=== PATIENT | female | born 1990 | race Caucasian/White ===

== ENCOUNTER 2017-02-17 17:34 | Emergency (ER) | payer OTHER ==
[2017-02-17 17:46] VITALS: BP 158/75
--- OUTSIDE RECORDS SUMMARY | 2017-02-17 18:48 | XMS REPORT | Continuity of Care Document ---
:1990 Author Organization [facility] ([facility]) Address [place] [address] Phone [phone] Care Team Providers Name Role Phone Unavailable Primary Care Provider Unavailable Source Comments This disclosure is being made pursuant to the Care Everywhere program, applicable federal and state laws, and may not contain all informaitonavailable regarding this patient.[facility] ([facility]) Active Allergies and Adverse Reactions No Active Allergies Current Medications Not on file Active Problems Problem Noted Date Palpitations 05/22/2004 Social History Tobacco Use Types Packs/Day Years Used Date Never Assessed Last Filed Vital Signs Vital Sign Reading Time Taken Blood Pressure 171/91 05/23/2004 8:23 AM CDT Pulse 76 05/23/2004 8:23 AM CDT Temperature 37.2 C (98.96 F) 05/23/2004 8:23 AM CDT Respiratory Rate 20 05/23/2004 8:23 AM CDT Height 1.63 m (5' 4.17") 05/23/2004 8:23 AM CDT Weight 43.7 kg (96 lb 5.4 oz) 05/23/2004 8:23 AM CDT Body Mass Index 16.45 05/23/2004 8:23 AM CDT Oxygen Saturation - - Plan of Care Health Maintenance Due Date Last Done Comments Hepatitis B Vaccine (1 of 3 - Primary Series) 1990 HPV Vaccine (1 of 3 - Female/Unknown 3 Dose Series) 2001 Tdap Vaccine 2001 Cervical Cancer Screening 2008 Lipid Disorder Screening 2008 MMR Vaccine 2008 Td Vaccine 2008 Varicella Vaccine (1 of 2 - Adult - No Evidence of 2008 Immunity) Influenza Vaccine: Seasonal (#1) 06/11/2016 Results from Last 3 Months Not on file
--- NOTE | 2017-02-17 19:59 | ERNOTE ---
ENT HPI Date of Service: 02/17/17 Presenting Symptoms: other - sore throat Time Seen by Provider: 02/17/17 18:26 Source: patient Exam Limitations: no limitations - Immun/Allergies/Home Medications Immunizations: IMMUNIZATION HX Immunizations Up to Date Yes History of Influenza Vaccine No Allergies/Adverse Reactions: Allergies Allergy/AdvReac Type Severity Reaction Status Date / Time azithromycin [From Zithromax] Allergy Verified 02/17/17 17:46 levofloxacin [From Levaquin] Allergy Verified 02/17/17 17:46 Penicillins Allergy Verified 02/17/17 17:46 Home Medications: HOME MEDICATIONS Cephalexin Monohydrate [Keflex] 500 mg PO Q12H #20 cap 02/17/17 [Last Taken Unknown] - History of Present Illness Narrative: 26 year old female presented to the ER for s/s of sore throat. states she was exposed to strepthroat, all 3 of her step children have it. her throat is sore, pain with swallowing and slight fever ( yesterday). Date (Duration): 02/17/17 Severity: Present: mild Prearrival Treatment: Present: no prearrival treatment Modifying Factors - Improves: Reports: cold Modifying Factors - Worsens: Reports: activity, coughing Associated Symptoms - ENT: Reports: fever, poor fluid intake, sore throat, nasal congestion/drainage, headache Review of Systems - Review of Systems Constitutional: Present: no symptoms reported EYE: Present: no symptoms reported ENT: Present: See HPI, sore throat Respiratory: Present: no symptoms reported Cardiology: Present: no symptoms reported Gastrointestinal/Abdominal: Present: no symptoms reported Genitourinary: Present: no symptoms reported Musculoskeletal: Present: no symptoms reported Skin: Present: no symptoms reported Neurological: Present: no symptoms reported Endocrine: Present: no symptoms reported Hematologic/Lymphatic: Present: no symptoms reported Psych: Present: no symptoms reported - Patient's Past Medical History Patient History - Medical: ADHD Patient History - Cardiac/Respiratory: No pertinent hx Patient History - Cancer: No Hx of Cancer Patient History - Surgical Procedures: Urology - Social History Living Situations: home Smoking Status: Never smoker Alcohol Use: occasionally Drug Use: none - Immunizations Immunizations Up to Date: Yes History of Influenza Vaccine: No Physical Exam - Physical Exam General Appearance: Present: wd/wn, alert, no apparent distress Eye Exam: Normal inspection: bilateral Ears, Nose, Throat: Present: normal except -, pharyngeal erythema Neck: Present: normal inspection Respiratory: Present: no respiratory distress, normal breath sounds, lungs clear Cardiovascular/Chest: Present: regular rate, rhythm, no murmur Gastrointestinal/Abdominal: Present: normal bowel sounds Back Exam: Present: normal inspection Extremity Exam: Present: normal inspection Neurological Exam: Present: alert, oriented, normal mood/affect Skin Exam: Present: normal color, warm/dry Lymphatic Exam: Present: no adenopathy ED Progress - Results and Orders Patient's Lab Results:: I have reviewed the patient's lab results. - Vital Signs Patient's Vital Signs:: I have reviewed the patient's vital signs. Vital Signs: Vital Signs 02/17/17 17:40 Temperature 36.9 C Pulse Rate 98 Respiratory 16 Rate Blood Pressure 158/75 O2 Sat by Pulse 100 Oximetry - Progress/Reassessment Chief Complaint: Sore Throat Progress:: Improved Departure Clinical Impression: Strep pharyngitis - Departure Disposition: Home Follow Up Needed Condition: Stable Instructions: Strep Throat, [id number], Sore Throat, [id number] Additional Instructions: Continue previous home medication as directed. Complete all antibiotics as directed and follow-up with her primary care physician in the next 2-3 days. Return to the emergency room if symptoms persist or become worse. May take over -the-counter medications for fever and pain. Referrals: Maria Esther Barreto MD [Primary Care Provider] - Prescriptions: Cephalexin Monohydrate [Keflex] 500 mg PO Q12H #20 cap
== END 2017-02-17 20:04 | disposition home or self-care (01) ==
LOC: ER 17:34
DX: J02.0 Streptococcal pharyngitis (principal)